=== PATIENT | female | born 1995 | race Caucasian/White ===

== ENCOUNTER 2021-01-12 11:39 | Inpatient (IN) ==
[2021-01-12] MEDS ORDERED: OXYTOCIN 30 UNITS/500 ML BAG IV PRN ×2 (12:13)
[2021-01-12 12:37] LABS: Hematocrit (blood only) 38.3 % (37-47); Hemoglobin 12.7 g/dL (12.0-16.0); Mean Corpuscular Hemoglobin 31.4 pg (25-34); Mean Corpuscular Hgb Conc 33.2 g/dL (32-36); Mean Corpuscular Volume 94.8 fL (80-100); Mean Platelet Volume 9.4 fL (7.4-10.4); Platelet Count 226 K/uL (130-400); RDW Coefficient of Variation 13.2 % (11.5-14.5); RDW Standard Deviation 45.6 fL (36.4-46.3); Red Blood Count 4.04 M/uL (4.2-5.4); White Blood Count 10.01 K/uL (4.8-10.8)
--- NOTE | 2021-01-12 12:53 | Labor Progress Brief Note ---
Date of Service January 12, 2021 Subjective 25yo @ 38 5/. Patient sent from office for evaluation of high blood pressure. No current JAMES, RUQ pain, vis chg or worsening edema. However BP today in office severe range, and BP on 01/06 was also hypertensive. Assessment & Plan (1) Gestational hypertension without significant proteinuria during in third trimester, antepartum: Plan: Meets criteria for gestational hypertension despite normal BP on arrival to L&D. Discussed that given GA >37wk, recommendation is for induction of labor. Given cervical ripeness based on exam done in office just shortly ago, will begin IOL with pitocin. Epidural on request. Admission and Anticipated Discharge Date Admission Date: January 12, 2021 Physical Exam Constitutional: WD/WN, vitals as above Eyes: PERRL, conjunctivae normal, anicteric sclerae ENMT: external ear and nose normal, oropharynx normal Neck: supple Respiratory: normal respiratory effort and able to speak in complete sentences; no respiratory distress Cardiovascular: Rate/Rhythm: regular rate and regular rhythm Gastrointestinal (Abdomen): Gravid / AGA, nontender Musculoskeletal: no cyanosis or clubbing, extremities motor strength 5/5 Skin: no rashes, warm and dry Neurologic: patellar DTR's 2+ bilat, sensation intact Psychiatric: A+Ox3, euthymic affect Genitourinary: Speculum/Bimanual Exam: no vaginal lesions, no vaginal bleeding and uterus nontender OB Exam Monitor Tracing: + external FHT monitor used, + external uterine monitor used and + category I Cervical exam by Dr. Mcclellan in the office already today, reviewed and accepted as likely unchanged in <1 hour in a nonlaboring patient. Lymphatic: no cervical or axillary lymphadenopathy Results & Data ([facility]) Vital Signs (Past 12 Hours) Vital Signs Temp Pulse Resp BP 01/12/21 12:09 98.8 F 18 01/12/21 11:57 99 H 123/78 Coding Level of Care Code None Diagnoses Gestational hypertension without significant proteinuria during in third trimester, antepartum O13.3
[2021-01-12 12:59] LABS: Alanine Aminotransferase 18 U/L (12-78); Albumin Level 2.9 gm/dl (3.4-5.0); Aspartate Aminotransferase 12 U/L (15-37); BUN Creatinine Ratio 10.6 (10-20); Blood Urea Nitrogen 6 mg/dl (7-18); Calcium 8.9 mg/dl (8.5-10.1); Carbon Dioxide 19 mmol/L (21-32); Chloride 111 mmol/L (98-107); Creatinine Clr Calc Pharmacy 182.3 ml/min; Est GFR (African American) > 150.0 ml/min; Est GFR (Non-African American) 132.2 ml/min; Glucose 96 mg/dl (70-99); Potassium 3.4 mmol/L (3.5-5.1); Sodium 140 mmol/L (136-145)
[2021-01-12 13:01] LABS: Albumin Globulin Ratio 0.8 (0.9-2); Alkaline Phosphatase 121 U/L (45-117); Bilirubin,Total 0.6 mg/dl (0.2-1); Globulin 3.5 gm/dl (2.5-4.0); Total Protein 6.4 gm/dl (6.4-8.2)
[2021-01-12] MEDS: LACTATED RINGER'S 1,000 ML IV PRN ×2 (14:44→18:04)
[2021-01-12 14:48] LABS: Total Protein Urine Random < 5.0 mg/dl (0-11.9)
[2021-01-12] MEDS ORDERED: ePHEDrine sulfate 50 MG/ML AMP ONE (17:25)
[2021-01-12] MEDS ORDERED: fentaNYL 2MCG/ML ROPIVACAINE 1.25MG/ML 100 ML BAG EPI ONE (17:25)
[2021-01-12] MEDS ORDERED: BUPIVACAINE 0.25% 30 ML VIAL ONE (17:25)
[2021-01-12] MEDS ORDERED: fentaNYL citrate 100 MCG/2 ML VIAL ONE (17:25)
[2021-01-12] MEDS ORDERED: SODIUM CHLORIDE 0.9% INJ 10 ML VIAL ONE (17:25)
--- NOTE | 2021-01-12 18:36 | Anesthesiology Consultation ---
Date of Service January 12, 2021 Assessment & Plan Chart Review Chart Review: Acceptable Risk for Labor Epidural Consults Requested none History Height/Weight Height: 5 ft 6 in Weight: 92.533 kg Allergies Allergy/AdvReac Type Severity Reaction Status Date / Time No Known Drug Allergies Allergy Verified 01/12/21 11:08 Medications Home Medications Medication Instructions Recorded Confirmed Last Taken cetirizine 10 mg tablet (Zyrtec) 10 mg PO DAILY PRN 05/27/20 01/12/21 01/11/21 prenat.vits,catalina,yxz-chfw-utqkn 1 tab PO DAILY 05/27/20 01/12/21 01/11/21 sertraline 50 mg tablet (Zoloft) 50 mg PO DAILY 05/27/20 01/12/21 01/11/21 breast pump #1 ea 12/01/20 01/12/21 Unknown Active Medications Generic Name Dose Route Start Last Admin Trade Name Freq PRN Reason Stop Dose Admin Oxytocin 30 units in 500 mls @ 7 mls/hr 01/12/21 12:13 01/12/21 16:42 Pitocin IV 01/14/21 12:12 0.42 units/hr .Q24H PRN 7 mls/hr Labor Induction/Augmentation Titration Protocol 0.42 UNITS/HR Lactated Ringer's 1,000 mls @ 125 mls/hr 01/12/21 12:13 01/12/21 18:30 Lr IV 01/14/21 12:12 125 mls/hr .Q8H PRN Infusion L&D Protocol Protocol Past Family History Family History (Updated 05/27/20 @ 13:27 by Shira Beck) Mother Graves disease Past Surgical History Surgical History (Updated 05/27/20 @ 14:48 by Shira Beck) S/P tonsillectomy Social History Smoking Status: Never smoker Hx Alcohol Use: No Hx Substance Use: No substance use type: does not use Physical Exam Vital Signs Last Vital Signs Temp 37.1 C 01/12/21 17:00 Pulse 88 01/12/21 18:34 Resp 18 01/12/21 17:30 BP 125/64 01/12/21 18:34 Pulse Ox 98 01/12/21 18:33 Testing Laboratory Results 01/12/21 12:25 01/12/21 12:25
[2021-01-12] MEDS ORDERED: diphenhydrAMINE 50 MG/ML VIAL IV PRN (18:40)
[2021-01-12] MEDS ORDERED: NALOXONE HCL 1 MG in SODIUM CHLORIDE 0.9% 1000ML 1,000 ML IV PRN (18:40)
[2021-01-12] MEDS ORDERED: ePHEDrine sulfate 50 MG/ML AMP IV PRN (18:40)
[2021-01-12] MEDS ORDERED: fentaNYL 2MCG/ML ROPIVACAINE 1.25MG/ML 100 ML BAG EPI PRN (18:40)
[2021-01-12] MEDS ORDERED: NALOXONE HCL 0.4 MG/1 ML VIAL/CARP IV PRN (18:40)
[2021-01-12] MEDS ORDERED: NALBUPHINE HCL INJ 10 MG/ML AMP IV PRN (18:40)
[2021-01-12] MEDS ORDERED: CALCIUM CARBONATE 500 MG CHEWABLE TAB PO PRN (19:23)
[2021-01-12] MEDS ORDERED: ONDANSETRON INJ 2 MG/ML 2 ML VIAL IV PRN (20:13)
--- NOTE | 2021-01-12 20:16 | Labor Progress Brief Note ---
Date of Service January 12, 2021 Subjective Comfortable with epidural Assessment & Plan (1) Gestational hypertension without significant proteinuria during in third trimester, antepartum: Plan: Continue titrating pitocin Admission and Anticipated Discharge Date Admission Date: January 12, 2021 Physical Exam Physical Exam: Pit @ 9 LOF clear /-1 FHT Cat 1 [place] Q2-5 irreg Results & Data ([facility]) Vital Signs (Past 12 Hours) Vital Signs Temp Pulse Resp BP Pulse Ox 01/12/21 20:08 88 100 01/12/21 20:03 75 99 01/12/21 20:01 74 117/56 L 01/12/21 19:58 83 99 01/12/21 19:53 76 99 01/12/21 19:48 91 H 99 01/12/21 19:47 92 H 133/58 L 01/12/21 19:43 91 H 99 01/12/21 19:38 94 H 99 01/12/21 19:33 74 99 01/12/21 19:31 78 131/60 01/12/21 19:28 82 98 01/12/21 19:23 80 100 01/12/21 19:18 92 H 127/59 L 100 01/12/21 19:13 86 99 01/12/21 19:08 100 H 98 01/12/21 19:03 99 H 98 01/12/21 19:00 98.2 F 88 18 149/75 H 01/12/21 18:58 96 H 149/74 H 99 01/12/21 18:56 94 H 141/70 H 01/12/21 18:54 93 H 143/72 H 01/12/21 18:53 85 99 01/12/21 18:52 94 H 140/68 01/12/21 18:50 93 H 127/58 L 01/12/21 18:48 91 H 138/66 100 01/12/21 18:46 82 130/63 01/12/21 18:44 82 117/62 01/12/21 18:43 83 99 01/12/21 18:42 135/70 01/12/21 18:40 92 H 131/71 01/12/21 18:38 89 135/76 100 01/12/21 18:36 87 134/68 01/12/21 18:34 88 125/64 01/12/21 18:33 88 98 09/21/21 18:32 89 141/65 H 01/12/21 18:30 87 137/69 01/12/21 18:28 86 136/70 99 01/12/21 18:27 82 176/86 H 01/12/21 18:24 108 H 150/88 H 01/12/21 18:23 89 96 01/12/21 18:22 95 H 148/92 H 01/12/21 18:20 103 H 141/88 H 01/12/21 18:18 98 H 98 01/12/21 18:13 106 H 99 01/12/21 18:12 114 H 94 01/12/21 18:08 95 H 99 01/12/21 18:03 87 98 01/12/21 18:00 18 01/12/21 17:59 86 164/85 H 01/12/21 17:58 86 99 01/12/21 17:30 18 01/12/21 17:00 98.8 F 01/12/21 16:37 90 130/82 01/12/21 16:30 18 01/12/21 16:00 20 01/12/21 15:51 93 H 137/81 01/12/21 15:30 20 01/12/21 15:00 20 01/12/21 14:44 112 H 151/92 H 01/12/21 12:15 98.8 F 01/12/21 12:09 98.8 F 18 01/12/21 11:57 99 H 123/78 Coding Level of Care Code None Diagnoses Gestational hypertension without significant proteinuria during in third trimester, antepartum O13.3
[2021-01-12] MEDS ORDERED: Nursing to Pharmacy Communication SCH (20:45)
[2021-01-12] MEDS: SERTRALINE HCL 50 MG TABLET PO SCH (21:08)
[2021-01-13] MEDS: LACTATED RINGER'S 1,000 ML IV PRN (00:47)
--- NOTE | 2021-01-13 02:14 | Delivery Summary ---
Vaginal Delivery Summary Date of Service January 13, 2021 Vaginal Delivery Summary DIAGNOSES: 1. Pink intrauterine at 38w6d gestation. 2. Induction of labor due to gestational hypertension. 3. Group B Streptococcus Neg. PROCEDURE: Spontaneous vaginal delivery and repair of second degree laceration. SURGEON: Yvonne Tellez MD. EXPEDITION SUPERVISOR: None. ESTIMATED BLOOD LOSS: 350 mL. COMPLICATIONS: None. PLACENTA: Spontaneous and intact with a 3-vessel cord. DISPOSITION: Stable to labor and delivery. DESCRIPTION: The patient pushed well and brought the head to in GABY position. The infant's head was allowed to deliver with contraction force and no further active pushing, with the perineum protected during this time. There was a nuchal cord, which was delivered through, as the baby came very quickly once the head emerged. The left shoulder was anterior. The shoulders and body delivered without any difficulty, and the infant was placed on the maternal abdomen. It was vigorous and moving all extremities, and making respiratory efforts. The cord was doubly clamped by the MD and then cut by the FOB. The placenta delivered spontaneously and was noted to be intact and with a 3VC. The cervix, vagina and perineum were examined and were found to have a second degree laceration. The skin was open to the level of the anal verge, but the sphincter was completely intact. A rectal exam was done to confirm, and gloves were ch anged before repair was completed in the usual manner for a 2nd degree, with vicryl suture including a crown stitch x2 to rebuild the perineal body, and subcuticular stitches to close the skin over the defect. The fundus was firm and lochia minimal immediately after delivery. [facility] Vaginal Delivery Charge Vaginal Delivery Codes: 04185 global code for the antepartum, delivery, and post-
[2021-01-13] MEDS ORDERED: CETIRIZINE HCL 10 MG TABLET PO PRN (02:31)
[2021-01-13] MEDS ORDERED: DIPHTHERIA/TETANUS/PERTUSSIS 0.5 ML SYR/VIAL IM ONE (02:31)
[2021-01-13] MEDS ORDERED: oxyCODONE/ACETAMINOPHEN 5mg/325mg TAB PO PRN (02:31)
[2021-01-13] MEDS ORDERED: SUPERCREAM 0.870% 15 GM JAR EXT PRN (02:31)
[2021-01-13] MEDS ORDERED: HYDROCORTISONE ACETATE 25 MG SUPP PR PRN (02:31)
[2021-01-13] MEDS: IBUPROFEN 600 MG TAB PO PRN ×4 (04:53→19:13)
[2021-01-13] MEDS: BENZOCAINE 20% AER SPR 82.5 GM CAN EXT PRN (04:54)
[2021-01-13] MEDS ORDERED: SERTRALINE HCL 50 MG TABLET PO SCH (09:00)
[2021-01-13] MEDS: DOCUSATE SODIUM 100 MG CAP PO SCH ×2 (09:13→20:05)
[2021-01-13] MEDS: PRENATAL VITAMIN 1 TAB PO SCH (09:14)
--- NOTE | 2021-01-13 09:57 | Anesthesia Procedure Note ---
Date of Service January 13, 2021 Anesthesia Post Epidural Note Vital Signs Vital Signs: Temp Pulse Resp BP Pulse Ox 37 C 91 H 20 131/73 98 01/13/21 07:45 01/13/21 07:45 01/13/21 07:45 01/13/21 07:45 01/13/21 07:45 Pain Intensity Lower Abdomen: Pain Intensity: 3 Notes Mental Status: alert / awake / arousable and participated in evaluation Nausea / Vomiting: adequately controlled Pain: adequately controlled Airway Patency, RR, SpO2: stable & adequate BP & HR: stable & adequate Hydration State: stable & adequate Neuraxial Anesthesia: was administered and sensory block is resolving Anesthetic Complications: no major complications apparent and Pt Satisfied with anesthetic care Epidural: Removed without complications and With tip intact Notes: Epidural site clean, dry and intact. No signs of edema, erythema or bruising at insertion site. Pt instructed to request anesthesia if she has residual lower extremity numbness or if she develops lower extremity pain or weakness, back pain or headache.
[2021-01-13] MEDS: SERTRALINE HCL 50 MG TABLET PO SCH (20:05)
[2021-01-13] MEDS: ACETAMINOPHEN 325 MG TAB PO PRN (22:39)
[2021-01-14 01:10] VITALS: O2SAT 96
[2021-01-14] MEDS: ACETAMINOPHEN 325 MG TAB PO PRN (04:04)
[2021-01-14 05:50] LABS: Hematocrit (blood only) 33.1 % (37-47); Hemoglobin 10.8 g/dL (12.0-16.0); Mean Corpuscular Hemoglobin 31.4 pg (25-34); Mean Corpuscular Hgb Conc 32.6 g/dL (32-36); Mean Corpuscular Volume 96.2 fL (80-100); Mean Platelet Volume 9.3 fL (7.4-10.4); Platelet Count 204 K/uL (130-400); RDW Coefficient of Variation 13.6 % (11.5-14.5); RDW Standard Deviation 47.1 fL (36.4-46.3); Red Blood Count 3.44 M/uL (4.2-5.4); White Blood Count 11.47 K/uL (4.8-10.8)
--- NOTE | 2021-01-14 07:16 | Obstetrical Progress Note ---
Date of Service January 14, 2021 Assessment & Plan (1) Supervision of normal intrauterine in primigravida: PPD#1 doing well, no concerns. Desires discharge home. Breast pumping. Reviewed DC instructions, follow up in office in 6w. Subjective Ambulation: ambulating normally Voiding: no voiding problems Diet Tolerance:: regular diet Lochia:: Moderate Review of Systems All systems reviewed & are unremarkable except as noted in HPI & below Physical Exam Constitutional WD/WN, vitals as above no acute distress Respiratory normal respiratory effort Cardiovascular Rate/Rhythm: regular rate and regular rhythm Gastrointestinal (Abdomen) Inspection/Auscultation: abdomen normal to inspection; abdomen not distended Percussion/Palpation: abdomen soft Genitourinary OB Exam Abdomen: + fundal height Fundus: + firm; not tender Results & Data ([facility]) Vital Signs (Past 12 Hours) Vital Signs Temp Pulse Resp BP Pulse Ox 01/13/21 23:30 37.2 C 79 16 128/83 96 01/13/21 19:25 37.2 C 92 H 20 117/79 98
[2021-01-14] MEDS: PRENATAL VITAMIN 1 TAB PO SCH (07:41)
[2021-01-14] MEDS: DOCUSATE SODIUM 100 MG CAP PO SCH (07:41)
[2021-01-14] MEDS: BENZOCAINE 20% AER SPR 82.5 GM CAN EXT PRN (07:41)
[2021-01-14 08:51] VITALS: BP 107/69; PULSE 80; TEMP 98.4
[2021-01-14] MEDS: IBUPROFEN 600 MG TAB PO PRN (08:59)
== END 2021-01-14 12:40 | disposition home or self-care (01) | DRG 807 ==
LOC: OPB 11:39 → 4S1 11:43 → 4S2 01-13 05:00